=== PATIENT | male | born 1945 | race Caucasian/White ===

== ENCOUNTER → 2017-09-25 | Outpatient (CLI) | payer MEDICARE, OTHER ==
[~2017-09-25] MED LIST: ASPI-1471 PO; ATOR10TA65 PO; BENZ200C15 PO; CHOL200022 PO; CLOP75TA43 PO; GLUC-198 PO; HYDR25SU51 RC; LEVO-85 PO; LOSA25TA50 PO; METO25TA93 PO; MULT-865 PO; OMEG-23 PO; OMEP-125 PO; OMEP-218 PO; PNEU0.5D3 IM; TAFL1DRO OS; TAFL1DRO OU; TAMS0.4C25 PO; TAVA10SO2 TOP; UBID100C48 PO
--- NOTE | 2017-09-25 15:06 | RADIOLOGY IMAGING REPORT ---
[place] [facility] [place] Richard Landrum : 1945 MR: [id number] V: [id number] EXAM DATE: ORDERING PHYSICIAN: MAURICE PICKETT TECHNOLOGIST: Location: [facility] Patient: Richard Landrum : 1945 Visit/Account:[id number] Date of Sevice: 09/25/2017 CAROTID HISTORY: Endarterectomy on left COMPARISON: April 13, 2016 FINDINGS: Grayscale, duplex and color Doppler interrogation of the extracranial carotid and vertebral arteries was performed bilateral. On the right, peak systolic velocities within the common and internal carotid arteries are 204 and 78 .1 cm/sec respectively. There is a moderate amount of plaque in the carotid bulb and proximal right internal carotid artery. Antegrade flow within the common, internal and external carotid arteries as well as vertebral artery. ICA/CCA ratio 0.8. On the left, peak systolic velocities within the common and internal carotid arteries are 169 and 1:1 5 cm/sec respectively. No significant plaque identified on the left. Antegrade flow within the comm on, internal and external carotid arteries as well as vertebral artery. ICA/CCA ratio 1.2.. There is an elevated peak systolic velocity in the left external carotid artery of 255 cm/s slightly increase d when compared the prior study IMPRESSION: There is a moderate amount of plaque in the right carotid bulb extending into the right internal bailey tid artery although no hemodynamically significant lesions are seen Elevated peak systolic velocity in the left external carotid artery of 255 cm second is slightly incr eased from 233 cm/s previously Velocity criteria are extrapolated from diameter data as defined by the Society of Radiologists in Ul trasound Consensus Conference Radiology 2003; 229;340-346 Report Dictated By: Natalie Gay MD at 09/25/2017 2:36 PM Report E-Signed By: Natalie Gay MD at 09/25/2017 3:02 PM EVELYNN:ANGIE
== END ==
LOC: US 00:42
PROVIDERS: ATTEND Surgery Vascular Surgery
DX: I65.21 Occlusion and stenosis of right carotid artery (principal)
CPT/HCPCS: 93880

== ENCOUNTER → 2017-10-01 | Outpatient (CLI) | payer MEDICARE, OTHER ==
--- NOTE | 2017-10-01 09:37 | RADIOLOGY IMAGING REPORT ---
FACILITY: [facility] [place] PATIENT NAME: Richard Landrum : 1945 MR: [id number] V: [id number] EXAM DATE: ORDERING PHYSICIAN: OLIVA HALE TECHNOLOGIST: [place] [facility] [place]: Richard Landrum : 1945 Visit/Account:[id number] Date of Sevice: 10/01/2017 ABDOMINAL AORTIC ULTRASOUND: INDICATION: AAA screening COMPARISON: None available FINDINGS: The suprarenal abdominal aorta measures 2.2 x 2.4 cm in AP and transverse dimensions respec tively. The superior infrarenal abdominal aorta measures 1.9 x 1.8 cm in AP and transverse dimensions respectively. The mid infrarenal abdominal aorta measures 1.7 x 1.6 cm in AP and transverse dimensio ns respectively. The inferior infrarenal abdominal aorta measures 1.9 x 1.9 cm in AP and transverse d imensions respectively. Right common iliac artery measures 1.3 cm and the left common iliac artery measures 1.3 cm. The IVC appears patent. IMPRESSION: 1. No evidence of abdominal aortic aneurysm. Report Dictated By: Jerome Huertas DO at 10/01/2017 9:31 AM Report E-Signed By: Jerome Huertas DO at 10/01/2017 9:33 AM WSN:[id number]
== END ==
LOC: US 00:47
PROVIDERS: ATTEND Surgery Vascular Surgery
DX: Z13.6 Encounter for screening for cardiovascular disorders (principal)
CPT/HCPCS: 93978

== ENCOUNTER 2018-06-25 10:00 | Outpatient (RCR) | payer MEDICARE, OTHER ==
[2018-06-25 10:10] VITALS: BP 168/91
[2018-06-25 10:40] LABS: LDL CHOLESTEROL 84 mg/dl
== END 2018-08-14 08:56 | disposition home or self-care (01) ==
LOC: SPU 10:00
PROVIDERS: ATTEND Radiology Radiation Oncology
DX: C61 Malignant neoplasm of prostate (principal)
CPT/HCPCS: 36415; 82040; 82247; 82310; 82374; 82435; 82465; 82565; 82947; 83036; 83718; 84075; 84132; 84153; 84155; 84295; 84450; 84460; 84478; 84520

== ENCOUNTER → 2018-06-25 | Outpatient (CLI) | payer MEDICARE, OTHER ==
[~2018-06-25] MED LIST changes: -LOSA25TA50 PO; +LOSA25TA57 PO
== END ==
LOC: SPU 10:03
PROVIDERS: ATTEND Internal Medicine
DX: I10 Essential (primary) hypertension (principal); E78.2 Mixed hyperlipidemia; R73.01 Impaired fasting glucose; C61 Malignant neoplasm of prostate; Z79.899 Other long term (current) drug therapy

== ENCOUNTER 2018-07-11 09:54 | Outpatient (RCR) | payer MEDICARE, OTHER ==
[2017-06-20 08:12] VITALS: BP 146/84
--- NOTE | 2018-07-11 13:49 | PURVIANCE FOLLOW UP ---
EVENT DATE: July 11, 2018 DIAGNOSIS/ONCOLOGY TREATMENT HISTORY Prostate adenocarcinoma, originally diagnosed in 2001, status post combination of external beam radiation therapy and prostate brachytherapy seed implant boost. INTERVAL HISTORY The patient presents today for followup. On presentation today, the patient overall feels well. He reports mild urinary frequency. He does take Flomax once daily. The patient denies any dysuria or hematuria. He has mild urgency. He has nocturia approximately one to two times per night. The patient has no diarrhea or bright red blood per rectum. The patient's most recent PSA on June 25, 2018, was less than 0.06 ng/mL. PAST MEDICAL HISTORY 1. Prostate cancer, see above. 2. Roman's esophagitis. 3. GERD. 4. Hiatal hernia. 5. Hypercholesterolemia. 6. Hypertension. 7. Status post hemorrhoidectomy. 8. Status post herniorrhaphy. 9. Status post tonsillectomy. ALLERGIES AMOXICILLIN. MEDICATIONS 1. Atorvastatin. 2. Tamsulosin. 3. Metoprolol. 4. Losartan. 5. Ubidecarenone. 6. Calciferol. 7. Tafluprost. 8. Omeprazole. 9. Aspirin. 10. Tonica 3 fatty acid. 11. Multivitamin. SOCIAL HISTORY No new info. FAMILY HISTORY No new info. PHYSICAL EXAMINATION VITAL SIGNS: Temperature 97.4, pulse 71, blood pressure 120/72, respiratory rate 16, O2 saturation 92% on room air. CONSTITUTIONAL AND GENERAL APPEARANCE: The patient is a well-appearing gentleman sitting comfortably in the chair in no acute distress. HEENT: Pupils are equal, round and reactive to light and accommodation. Extraocular movements are intact. There are no lesions of the oropharynx. NECK: Supple. Trachea is midline. LYMPHATIC SURVEY: No palpable supraclavicular lymphadenopathy bilaterally. LUNGS: Clear to auscultation and percussion bilaterally. CARDIOVASCULAR: Regular rate and rhythm, normal S1 and S2. No murmurs, rubs or gallops. ABDOMEN: Soft, nontender with active bowel sounds. No hepatosplenomegaly. EXTREMITIES: No edema, clubbing or cyanosis. NEUROLOGIC: The patient is alert and oriented x3. Gait is normal. PERFORMANCE STATUS: 90%. IMPRESSION Prostate adenocarcinoma diagnosed in 2001, status post combined external beam radiotherapy and prostate brachytherapy seed implant boost. The patient has an undetectable PSA. He has satisfactory urinary function. PLAN The patient will follow up with radiation oncology in one year with a repeat PSA. He will continue on Flomax. He is up to date with his colonoscopy. MTDD
[2018-08-20] MEDS ORDERED: ATOR10TA65 PO (09:09)
[2018-08-20] MEDS ORDERED: TAMS0.4C25 PO (09:09)
[2018-08-20] MEDS ORDERED: METO25TA93 PO (09:09)
== END 2018-08-19 08:32 | disposition home or self-care (01) ==
LOC: RAON 09:54
PROVIDERS: ATTEND Radiology Radiation Oncology
DX: Z85.46 Personal history of malignant neoplasm of prostate (principal); Z92.3 Personal history of irradiation; K22.70 Barrett's esophagus without dysplasia; K21.9 Gastro-esophageal reflux disease without esophagitis; K44.9 Diaphragmatic hernia without obstruction or gangrene; E78.00 Pure hypercholesterolemia, unspecified; I10 Essential (primary) hypertension